=== PATIENT | female | born 1985 | race Caucasian/White ===

== ENCOUNTER 2018-04-25 10:03 | Emergency (ER) | payer OTHER ==
[2018-04-25 11:00] VITALS: BP 110/69
[2018-04-25] MEDS ORDERED: Penicillin VK LIQ* 250 MG/5 ML BTL PO ONE (11:50)
--- NOTE | 2018-04-25 12:07 | UC ---
Dental HPI - HPI Summary HPI Summary: 32 yo female with right jaw swelling x days has appt with dentist in 2 days no f/c pain controlled with ibu - History of Current Complaint Chief Complaint: UCDentalProblem Stated Complaint: DENTAL Time Seen by Provider: 04/25/18 11:37 Hx Obtained From: Patient Hx Last Menstrual Period: has not gotten period yet Onset/Duration: Gradual Onset, Lasting Days Severity: Moderate Pain Intensity: 7 Pain Scale Used: 0-10 Numeric Alleviating Factor(s): OTC Meds Related History: Previous Dental Care on Same Tooth, Swelling - Allergies/Home Medications Allergies/Adverse Reactions: Allergies Allergy/AdvReac Type Severity Reaction Status Date / Time No Known Allergies Allergy Verified 04/25/18 10:51 Home Medications: Home Medications Ibuprofen TAB* [Motrin TAB* 600 MG] 600 mg PO Q6H PRN 04/25/18 [History Confirmed 04/25/18] Sertraline* [Zoloft*] 150 mg PO DAILY 04/25/18 [History Confirmed 04/25/18] PMH/Surg Hx/FS Hx/Imm Hx Previously Healthy: Yes Other History Of: Hepatitis C - No treatment. Negative For: HIV, Hepatitis B, Anticoagulant Therapy - Surgical History Surgical History: None Surgery Procedure, Year, and Place: REMOVAL OF [place] AFTER GIVING - Family History Known Family History: Positive: None - Social History Alcohol Use: None Substance Use Type: None Substance Use Comment - Amount & Last Used: a week ago , last use Smoking Status (MU): Current Every Day Smoker Type: Cigarettes Amount Used/How Often: >1/2 PPD Have You Smoked in the Last Year: Yes When Did the Patient Quit Smoking/Using Tobacco: 1/2 PPD Review of Systems Constitutional: Negative Skin: Negative Eyes: Negative ENT: Dental Pain Respiratory: Negative Cardiovascular: Negative Gastrointestinal: Negative Genitourinary: Negative Motor: Negative Neurovascular: Negative Musculoskeletal: Negative Neurological: Negative Psychological: Negative Is Patient Immunocompromised?: No All Other Systems Reviewed And Are Negative: Yes Physical Exam Triage Information Reviewed: Yes Appearance: Well-Appearing, No Pain Distress, Well-Nourished Vital Signs: Initial Vital Signs Temp 99.6 F 04/25/18 10:53 Pulse 80 04/25/18 10:53 Resp 18 04/25/18 10:53 BP 110/69 04/25/18 10:53 Pulse Ox 98 04/25/18 10:53 Vital Signs Reviewed: Yes Eyes: Positive: Conjunctiva Clear ENT: Positive: Hearing grossly normal, Dental tenderness, Uvula midline. Negative: Nasal congestion, Nasal drainage, Tonsillar swelling, Trismus Dental: Positive: Gross Decay/Caries @, Abscess @ Respiratory: Positive: Lungs clear, Normal breath sounds, No respiratory distress, No accessory muscle use Cardiovascular: Positive: RRR, No Murmur Bowel Sounds: Positive: Present Musculoskeletal: Positive: ROM Intact, No Edema Neurological: Positive: Alert Dental Complaint Course/Dx - Differential Dx/Diagnosis Provider Diagnoses: dental abscess Discharge - Sign-Out/Discharge Documenting (check all that apply): Discharge/Admit/Transfer - Discharge Plan Condition: Stable Disposition: HOME Prescriptions: Fluconazole 150 MG (NF) [Diflucan 150 mg (NF)] 150 mg PO ONCE #1 tab Penicillin VK 500 MG TAB(NF) [Penicillin VK 500 mg Tab] 500 mg PO QID #28 tab Patient Education Materials: Dental Abscess (ED) Forms: *Work Release Referrals: Praveena Carreon MD [Primary Care Provider] - Additional Instructions: see dentist as planned to ER for new or worsening symptoms - Billing Disposition and Condition Condition: STABLE Disposition: Home Images Dental: 1 - abscess/many rotted and absent teeth
== END 2018-04-25 12:00 | disposition home or self-care (01) ==
LOC: UCEAST 10:03
DX: K04.7 Periapical abscess without sinus (principal); F17.210 Nicotine dependence, cigarettes, uncomplicated
CPT/HCPCS: 99212; A9270-GY; G0463

== ENCOUNTER 2020-02-11 00:22 | Emergency (ER) | payer SELFPAY ==
[2020-02-11] MEDS ORDERED: Ondansetron INJ* 2 MG/ML VIAL IV ONE (00:50)
[2020-02-11] MEDS ORDERED: Ketorolac INJ* 30 MG/ML 1 ML VIAL IV ONE (00:50)
[2020-02-11] MEDS ORDERED: NS 0.9% 1000 ML** 1,000 ML IV ONE (00:50)
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
[2020-02-11 01:52] LABS: ABS Basophils 0.1 10^3/ul (0-0.2); ABS Eosinophils 0.2 10^3/ul (0-0.6); ABS Lymphocytes 1.6 10^3/ul (1.0-4.8); ABS Monocytes 0.4 10^3/ul (0-0.8); Eosinophil % 2.2 %; Hematocrit 43 % (35-47); Hemoglobin 14.8 g/dL (12.0-16.0); Lymphocyte % 17.5 %; Mean Corpuscular HGB Conc 34 g/dL (31-36); Mean Corpuscular Hemoglobin 29 pg (27-31); Mean Corpuscular Volume 86 fL (80-97); Mean Platelet Volume 8.7 fL (7.4-10.4); Platelet Count 231 10^3/uL (150-450); Red Blood Count 5.05 10^6 /uL (3.70-4.87); Red Cell Distribution Width 14 % (10-15); White Blood Count 9.4 10^3/uL (3.5-10.8)
[2020-02-11 02:22] LABS: Albumin 3.8 g/dL (3.2-5.2); Anion Gap 6 mmol/L (2-11); BUN/Creatinine Ratio 11.1 (8-20); Blood Urea Nitrogen 9 mg/dL (6-24); CO2 Carbon Dioxide 26 mmol/L (22-32); Chloride 105 mmol/L (101-111); EGFR African American 96.8 (>60); Glucose 146 mg/dL (70-100); HCG Pregnancy 0.72 mIU/mL; Sodium 137 mmol/L (135-145)
[2020-02-11] MEDS ORDERED: Iohexol 300* (CONTRAST) 10 ML SDV IV ONE (02:42)
[2020-02-11 02:58] LABS: INR 1.05 (0.82-1.09)
[2020-02-11 03:01] LABS: Alcohol < 10 mg/dL (<10)
[2020-02-11 03:20] LABS: ALT 17 U/L (7-52); Albumin/Globulin Ratio 1.2 (1-3); Alkaline Phosphatase 65 U/L (34-104); Globulin 3.1 g/dL (2-4); Total Protein 6.9 g/dL (6.4-8.9)
[2020-02-11 05:15] LABS: Urine Appearance Cloudy; Urine Bilirubin Negative (Negative); Urine Blood Negative (Negative); Urine Color Yellow; Urine Glucose Negative (Negative); Urine Ketones Negative (Negative); Urine Nitrite Negative (Negative); Urine Protein Negative (Negative); Urine Specific Gravity 1.048 (1.010-1.030); Urine Urobilinogen Negative (Negative)
[2020-02-11 05:25] LABS: Urine Bacteria 2+ (Absent); Urine Red Blood Cell Absent (Absent); Urine Squamous Epithelial Cell Present (Absent); Urine White Blood Cell Trace(0-5/hpf) (Absent)
[2020-02-11 05:34] LABS: Urine Benzodiazepine Screen None Detected (None Detect); Urine Opiates Screen Presumptive Positive (None Detect)
[2020-02-11 06:09] VITALS: BP 101/55
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
== END 2020-02-11 05:44 | disposition home or self-care (01) ==
LOC: ED 00:22
DX: R60.9 Edema, unspecified (principal); R10.12 Left upper quadrant pain; F17.210 Nicotine dependence, cigarettes, uncomplicated; Y09 Assault by unspecified means
CPT/HCPCS: 36415; 70450; 70486; 71260; 72125; 74177; 80053; 80307; 80320; 81003; 81015; 83605; 84702; 85025; 85610; 87077; 87086; 87186; 96361; 96374; 96375; 99283; G0480; J1885; J2405; Q9967